=== PATIENT | female | born 1980 | race American Indian/Alaskan Native ===

== ENCOUNTER 2017-11-25 06:26 | Emergency (ER) | payer SELFPAY ==
[2017-11-25] MEDS ORDERED: BOOSTRIX IM ONE (07:46)
[2017-11-25] MEDS ORDERED: FUL-GLO OP ONE (07:46)
--- NOTE | 2017-11-25 07:59 | Emergency Department Report ---
ED Eye Problem HPI - General Chief complaint: Eye Problems Stated complaint: RIGHT EYE PAIN/BURNING Time Seen by Provider: 11/25/17 07:32 Source: patient Mode of arrival: Ambulatory Limitations: No Limitations - History of Present Illness Initial comments: This is a 37-year-old female nontoxic well in appearance with no signs of distress presents to the ER complaining of right-sided eye redness and itching that started this morning. Patient denies any trauma. Patient stated she was itching her eye and developed pain. She denies any decreased vision, visual changes, fever, chills, nausea, vomiting, chest pain, short of breath, headache , stiff neck, numbness or tingling. Patient denies any allergies or significant past medical history. MD chief complaint: eye redness, other (eye burning) -: days(s) (1) Location: right eye Place: work If Injury: none Eye Symptoms: burning, redness, itching Severity: mild Severity scale (0 -10): 8 Consistency: constant Associated Symptoms: none. denies: headache, neck pain, nausea/vomiting, cough , rhinorrhea, fever, shortness of breath Treatments Prior to Arrival: none - Related Data Previous Rx's Medication Instructions Recorded Last Taken Type Polymyxin B Sulf/Trimethoprim 2 drops OD TID #1 drops 11/25/17 Unknown Rx [Polytrim Eye Drops] Allergies Allergy/AdvReac Type Severity Reaction Status Date / Time No Known Allergies Allergy Unverified 11/25/17 06:51 ED Review of Systems ROS: Stated complaint: RIGHT EYE PAIN/BURNING Other details as noted in HPI Constitutional: denies: chills, fever Eyes: eye pain. denies: eye discharge, vision change ENT: denies: ear pain, throat pain Respiratory: denies: cough, shortness of breath, wheezing Cardiovascular: denies: chest pain, palpitations Endocrine: no symptoms reported Gastrointestinal: denies: abdominal pain, nausea, diarrhea Genitourinary: denies: urgency, dysuria, discharge Musculoskeletal: denies: back pain, joint swelling, arthralgia Skin: denies: rash, lesions Neurological: denies: headache, weakness, paresthesias Psychiatric: denies: anxiety, depression Hematological/Lymphatic: denies: easy bleeding, easy bruising ED Past Medical Hx - Past Medical History Previous Medical History?: No - Surgical History Additional Surgical History: Hernia Repair, Ectopic - Social History Smoking Status: Never Smoker Substance Use Type: None - Medications Home Medications: Home Medications Medication Instructions Recorded Confirmed Last Taken Type Polymyxin B Sulf/Trimethoprim 2 drops OD TID #1 drops 11/25/17 Unknown Rx [Polytrim Eye Drops] ED Physical Exam - General Limitations: No Limitations General appearance: alert, in no apparent distress - Head Head exam: Present: atraumatic, normocephalic - Eye Eye exam: Present: normal appearance, PERRL, EOMI. Absent: scleral icterus, conjunctival injection, nystagmus, periorbital swelling, periorbital tenderness Pupils: Present: normal accommodation - Expanded Eye Exam Expanded Eyelids: Normal Inspection: Right Pupils: Regular, Round: Right, Reactive: Right Sclera/Conjunctival: Normal Inspection: Right Anterior chamber: Normal Inspection: Right Visual acuity (R) = 20/: 20 Visual acuity (L) = 20/: 20 With correction: No IOP (R) in mmH IOP measured with: Tonopen - ENT ENT exam: Present: normal exam, mucous membranes moist - Neck Neck exam: Present: normal inspection, full ROM. Absent: tenderness, meningismus, lymphadenopathy - Respiratory Respiratory exam: Present: normal lung sounds bilaterally. Absent: respiratory distress, wheezes, rales, rhonchi, stridor, chest wall tenderness, accessory muscle use, decreased breath sounds, prolonged expiratory - Cardiovascular Cardiovascular Exam: Present: regular rate, normal rhythm, normal heart sounds. Absent: bradycardia, tachycardia, irregular rhythm, systolic murmur, diastolic murmur, rubs, gallop - GI/Abdominal GI/Abdominal exam: Present: soft, normal bowel sounds - Extremities Exam Extremities exam: Present: normal inspection - Back Exam Back exam: Present: normal inspection - Neurological Exam Neurological exam: Present: alert, oriented X3 - Psychiatric Psychiatric exam: Present: normal affect, normal mood - Skin Skin exam: Present: warm, dry, intact, normal color. Absent: rash - Other Other exam information: Under [place] lamp, I used fluorescein and tetracaine to examine cornea for corneal abrasion or foreign body, positive for coronary abrasion with no foreign body noted upon exam. ED Course Vital Signs 11/25/17 06:30 Temperature 98.5 F Pulse Rate 81 Respiratory 16 Rate Blood Pressure 182/109 O2 Sat by Pulse 99 Oximetry - Reevaluation(s) Reevaluation #1: 11/25/17 08:20 Patient is speaking in full sentences with no signs of distress noted. Critical care attestation.: If time is entered above; I have spent that time in minutes in the direct care of this critically ill patient, excluding procedure time. ED Disposition Clinical Impression: Corneal abrasion, right Qualifiers: Encounter type: initial encounter Qualified Code(s): S05.01XA - Injury of conjunctiva and corneal abrasion without foreign body, right eye, initial encounter Disposition: TO HOME OR SELFCARE Is pt being admited?: No Does the pt Need Aspirin: No Condition: Stable Instructions: Corneal Abrasion (ED) Additional Instructions: Follow-up with a [facility] doctor in 2-3 days or if symptoms worsen and continue return to emergency room as soon as possible. Prescriptions: Polymyxin B Sulf/Trimethoprim [Polytrim Eye Drops] 2 drops OD TID #1 drops Referrals: PRIMARY CAREMD [Primary Care Provider] - 3-5 Days SHAYLA JOHNSON MD [Staff Physician] - 3-5 Days [facility] [Outside] - 3-5 Days Forms: Work/School Release Form(ED)
[2017-11-25 08:55] VITALS: BP 158/104
== END 2017-11-25 08:25 | disposition home or self-care (01) ==
LOC: ED 06:26
DX: S05.01XA Injury of conjunctiva and corneal abrasion without foreign body, right eye, initial encounter (principal); X58.XXXA Exposure to other specified factors, initial encounter; Y93.89 Activity, other specified; Y92.69 Other specified industrial and construction area as the place of occurrence of the external cause; Y99.8 Other external cause status
CPT/HCPCS: 90471; 90715; 99282

== ENCOUNTER 2017-11-27 19:47 | Emergency (ER) | payer SELFPAY ==
[2017-11-27] MEDS ORDERED: MOTRIN PO ONE (23:56)
--- NOTE | 2017-11-28 00:03 | Emergency Department Report ---
ED General Adult HPI - General Chief complaint: Eye Problems Stated complaint: RT EYE MAHAJAN Time Seen by Provider: 11/27/17 23:54 Source: patient Mode of arrival: Ambulatory Limitations: No Limitations - History of Present Illness Initial comments: 37-year-old -[place] female that is nontoxic comes in complaining of right eye pain. Patient was seen here in the ED with right eye pain and diagnosed with a corneal abrasion and placed on Polytrim eyedrops. Patient reports that she still has eye pain. Patient states that she's been using the eyedrops. She reports that she's has to wear sunglasses because the light causes increased pain. Patient has not taken any [id number] pain medication. She has not followed up with ophthalmology as it was referred to her and her discharge summary. -: days(s) (3) Location: eyes (right eye) Severity scale (0 -10): 10 Quality: burning, aching Consistency: constant Improves with: none Worsens with: other (lights) - Related Data Previous Rx's Medication Instructions Recorded Last Taken Type Polymyxin B Sulf/Trimethoprim 2 drops OD TID #1 drops 11/25/17 Unknown Rx [Polytrim Eye Drops] HYDROcodone/ACETAMINOPHEN [[place] 1 each PO Q6H #12 tablet 11/28/17 Unknown Rx 5-325 Tablet] Ibuprofen [Motrin 600 MG tab] 600 mg PO Q8H #15 tablet 11/28/17 Unknown Rx Allergies Allergy/AdvReac Type Severity Reaction Status Date / Time No Known Allergies Allergy Unverified 11/25/17 06:51 ED Review of Systems ROS: Stated complaint: RT EYE MAHAJAN Other details as noted in HPI Comment: All other systems reviewed and negative Eyes: eye pain, other (photosensitivity) ED Past Medical Hx - Past Medical History Previous Medical History?: No - Surgical History Past Surgical History?: Yes Additional Surgical History: Hernia Repair, Ectopic - Social History Smoking Status: Never Smoker Substance Use Type: None - Medications Home Medications: Home Medications Medication Instructions Recorded Confirmed Last Taken Type Polymyxin B Sulf/Trimethoprim 2 drops OD TID #1 drops 11/25/17 Unknown Rx [Polytrim Eye Drops] HYDROcodone/ACETAMINOPHEN [[place] 1 each PO Q6H #12 tablet 11/28/17 Unknown Rx 5-325 Tablet] Ibuprofen [Motrin 600 MG tab] 600 mg PO Q8H #15 tablet 11/28/17 Unknown Rx ED Physical Exam - General Limitations: No Limitations General appearance: alert, in no apparent distress, other (nontoxic) - Head Head exam: Present: atraumatic, normocephalic - Eye Eye exam: Present: EOMI - ENT ENT exam: Present: mucous membranes moist - Neurological Exam Neurological exam: Present: alert, oriented X3 - Psychiatric Psychiatric exam: Present: normal affect, normal mood - Skin Skin exam: Present: warm, dry, intact, normal color. Absent: rash ED Course Vital Signs 11/27/17 20:35 Temperature 98.2 F Pulse Rate 84 Respiratory 17 Rate Blood Pressure 150/99 O2 Sat by Pulse 100 Oximetry ED Medical Decision Making - Medical Decision Making Patient has been about seen here by this provider. Patient was discharged on Polytrim. I will discharge patient on ibuprofen 600 mg and [place] 5/325. I explained to the patient that is very very important for her to follow up with an civil drafter. Patient verbalized understanding Critical care attestation.: If time is entered above; I have spent that time in minutes in the direct care of this critically ill patient, excluding procedure time. ED Disposition Clinical Impression: Pain, eye, right Corneal abrasion, right Qualifiers: Encounter type: sequela Qualified Code(s): S05.01XS - Injury of conjunctiva and corneal abrasion without foreign body, right eye, sequela Disposition: -01 TO HOME OR SELFCARE Is pt being admited?: No Does the pt Need Aspirin: No Condition: Stable Instructions: Corneal Abrasion (ED) Additional Instructions: Please take pain medication as needed. Please do not operate heavy machinery while taking the [place]. It is very very important for him to follow up with civil drafter as you need to have a specialist literature eye. Prescriptions: HYDROcodone/ACETAMINOPHEN [[place] 5-325 Tablet] 1 each PO Q6H #12 tablet Ibuprofen [Motrin 600 MG tab] 600 mg PO Q8H #15 tablet Referrals: PRIMARY MD JYOTSNA [Primary Care Provider] - 3-5 Days SHAYLA JOHNSON MD [Staff Physician] - 3-5 Days [facility] [Provider Group] - 3-5 Days [facility] [employer] [Provider Group] - 3-5 Days Forms: Work/School Release Form(ED)
[2017-11-28 00:20] VITALS: BP 145/91
== END 2017-11-28 00:20 | disposition home or self-care (01) ==
LOC: ED 19:47
DX: S05.01XA Injury of conjunctiva and corneal abrasion without foreign body, right eye, initial encounter (principal)
CPT/HCPCS: 99282

== ENCOUNTER 2018-06-10 09:12 | Emergency (ER) | payer SELFPAY ==
[2018-06-10 09:25] VITALS: BP 171/104
[2018-06-10] MEDS ORDERED: ZOFRAN ODT PO ONE (09:35)
--- NOTE | 2018-06-10 09:57 | Emergency Department Report ---
Vomiting/Diarrhea - HPI Chief Complaint: Abdominal Pain Stated Complaint: DIZZY/VOMITING/STOMACH PAIN Time Seen by Provider: 06/10/18 09:30 Duration: Today Severity: moderate Nausea/Vomiting Severity: Mild (vomited twice) Diarrhea Severity: None Pain Location: Suprapubic Pain Severity: Mild Symptoms: Yes Able to Tolerate Fluids, No Fever, No Recent Unusual Foods, No Recent Untreated Water, No Recent use of Antibiotics, No Family w/ Similar Symptoms, No Contacts w/ Similar Symptoms, No Rash, No Hematuria, No Recent URI Symptoms ED Review of Systems ROS: Stated complaint: DIZZY/VOMITING/STOMACH PAIN Other details as noted in HPI Comment: All other systems reviewed and negative ED Past Medical Hx - Past Medical History Previous Medical History?: No Hx Hypertension: Yes - Surgical History Past Surgical History?: Yes Additional Surgical History: Hernia Repair, Ectopic - Social History Smoking Status: Never Smoker Substance Use Type: None - Medications Home Medications: Home Medications Medication Instructions Recorded Confirmed Last Taken Type Polymyxin B Sulf/Trimethoprim 2 drops OD TID #1 drops 11/25/17 Unknown Rx [Polytrim Eye Drops] HYDROcodone/ACETAMINOPHEN [[place] 1 each PO Q6H #12 tablet 11/28/17 Unknown Rx 5-325 Tablet] Ibuprofen [Motrin 600 MG tab] 600 mg PO Q8H #15 tablet 11/28/17 Unknown Rx Docusate Sodium [Colace] 100 mg PO BID #30 capsule 06/10/18 Unknown Rx Ondansetron [Zofran Odt] 4 mg PO Q8HR PRN #6 tab.rapdis 06/10/18 Unknown Rx Vomiting Diarrhea Exam - Exam General: Vital signs noted. No distress. Alert and acting appropriately. HEENT: Yes Moist Mucous Membranes, No Pharyngeal Erythema, No Pharyngeal Exudates, No Rhinorrhea, No Conjuctival Injection, No Frontal Tenderness, No Maxillary Tenderness Neck: No Adenopathy, No Rigidity Lungs: Yes Clear Lung Sounds, Yes Good Air Exchange, No Wheezes, No Stridor, No Cough, No Nasal Flaring, No Retractions, No Use of Accessory Muscles Heart exam: Regular: Yes, Murmur: No, Tachycardia: No Abdomen: Tenderness: No, Peritoneal Signs: No, Distention: No, Hyperactive Bowel sounds: No Skin exam: Rash: No, Edema: No, Normal turgor: Yes Neurologic: Alert and oriented, no deficits. Musculoskeletal: Unremarkable. ED Course Vital Signs 06/10/18 09:17 Temperature 98.1 F Pulse Rate 72 Respiratory 16 Rate Blood Pressure 171/104 O2 Sat by Pulse 100 Oximetry ED Medical Decision Making - Radiology Data Radiology results: image reviewed (KUB WNL except mild constipation) - Medical Decision Making Patient nausea was controlled. Patient possibly be having symptoms from early viral infection or possibly irritation from some initiate. Patient to be discharged home. Critical care attestation.: If time is entered above; I have spent that time in minutes in the direct care of this critically ill patient, excluding procedure time. ED Disposition Clinical Impression: Nausea, Constipation Disposition: DC-01 TO HOME OR SELFCARE Is pt being admited?: No Does the pt Need Aspirin: No Condition: Stable Instructions: Abdominal Pain (ED), Acute Nausea and Vomiting (ED), Constipation (ED), High Fiber Diet (ED) Referrals: JEFERSON CASTILLO MD [Primary Care Provider] - 3-5 Days Forms: Work/School Release Form(ED) Time of Disposition: 11:36
[2018-06-10 10:22] LABS: Bilirubin,Urine NEG (Negative); Blood,Urine SM (Negative); Color,Urine Yellow (Yellow); Mucus,Urine 1+ /HPF; Protein,Urine <15 mg/dL mg/dL (Negative); WBC,Urine < 1.0 /HPF (0.0-6.0)
[2018-06-10 10:23] LABS: HCG Qualitative,Urine Negative (Negative)
--- NOTE | 2018-06-10 11:37 | XRay Report ---
AP ABDOMEN: HISTORY: Abdominal pain, nausea and vomiting. The abdominal gas pattern is unremarkable. No masses or organomegaly is identified and there is no gross evidence of free air or fluid. No significant soft tissue calcifications are noted. IMPRESSION: Unremarkable abdomen.
== END 2018-06-10 11:57 | disposition home or self-care (01) ==
LOC: ED 09:12
DX: K59.00 Constipation, unspecified (principal); R11.0 Nausea; I10 Essential (primary) hypertension
CPT/HCPCS: 74018; 81001; 81025; Q0162

== ENCOUNTER 2019-01-21 07:24 | Emergency (ER) | payer SELFPAY ==
[2019-01-21 07:34] VITALS: BP 169/112
--- NOTE | 2019-01-21 08:10 | Emergency Department Report ---
Chief Complaint: Extremity Injury, Lower Stated Complaint: MUSCLE SPASMS/LFT SIDE CHRONIC PAIN Time Seen by Provider: 01/21/19 08:04 - HPI History of Present Illness: 8-year-old -[place] female presents to the emergency room complaining of left lower back pain that travels down to her left leg that tingling and throbbing. He started since Thursday. Patient states that she did take ibuprofen milligrams on Thursday 1 dose and Excedrin 1 dose yesterday. Yuni pisano denies any falls or injuries. 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 Patient reports she does not have a primary care provider. - Exam Vital Signs: Vital Signs 01/21/19 07:28 Temperature 99.2 F Pulse Rate 83 Respiratory 20 Rate Blood Pressure 169/112 O2 Sat by Pulse 98 Oximetry Physical Exam: Patient's alert and oriented 3. Patient has a positive straight leg examination of the left leg. Patient has all sensory is intact upper and lower extremities. Patient has good pulses or lower extremities. MSE screening note: Focused history and physical exam performed. Due to findings the following was ordered: Discussed with patient this most likely sciatica she can continue with [id number] ibuprofen discussed with her to take it on a scheduled basis. Patient be given a handout of sciatica stretches. Patient is to follow up with one of the community clinics. Patient verbalized understanding. Patient discussed with doctor:: DEMETRICE WINN ED Disposition for MSE Clinical Impression: Sciatica of left side Disposition: Z-07 MED SCREENING EXAM-LEFT Is pt being admited?: No Does the pt Need Aspirin: No Condition: Stable Instructions: Sciatica (ED), Lumbar Radiculopathy (ED) Referrals: PRIMARY CARE, [Primary Care Provider] - 3-5 Days Forms: Work/School Release Form(ED)
== END 2019-01-21 08:23 | disposition left against medical advice (07) ==
LOC: ED 07:24
DX: M54.42 Lumbago with sciatica, left side (principal)
CPT/HCPCS: 99282